=== PATIENT | male | born 1985 | race Caucasian/White ===

== ENCOUNTER 2022-06-06 12:06 | Emergency (ER) | payer BC ==
[2022-06-06] MEDS ORDERED: Diphtheria,Pertussis(Acell),Tetanus Vaccine 0.5 ML Syringe IM ONE (12:24)
== END 2022-06-06 12:57 | disposition home or self-care (01) ==
LOC: MW.ED 12:06
DX: T33.012A Superficial frostbite of left ear, initial encounter (principal); T33.011A Superficial frostbite of right ear, initial encounter; X31.XXXA Exposure to excessive natural cold, initial encounter
CPT/HCPCS: 99283